=== PATIENT | male | born 1955 ===

== ENCOUNTER 2022-04-24 18:24 | Inpatient (IN) | payer MEDICARE, OTHER ==
[~2022-04-24] VITALS: Ht 167.6 cm; Wt 65.8 kg
[2022-04-24] MEDS ORDERED: IV NORMAL SALINE 1000 ML BAG IV ONE (19:00)
[2022-04-24] MEDS ORDERED: TAMS-3 PO (19:10)
[2022-04-24] MEDS ORDERED: ATOR20TA PO (19:10)
[2022-04-24 19:42] LABS: HEMATOCRIT 39.1 % (36.7-47.1); MEAN CORPUSCULAR HEMOGLOBIN 28.7 uug (23.8-33.4); MEAN CORPUSCULAR VOLUME 85.7 fL (73.0-96.2); PLATELET COUNT (AUTO) 118 K/uL (152-348)
[2022-04-24 19:49] LABS: BILIRUBIN,DIRECT 0.4 mg/dL (0.0-0.2); BILIRUBIN,TOTAL 1.4 mg/dL (0.2-1.0); CREATININE 2.2 mg/dL (0.6-1.3); POTASSIUM 4.7 mmol/L (3.5-5.1); TOTAL PROTEIN, SERUM 6.9 g/dL (6.4-8.2)
[2022-04-24] MEDS ORDERED: IV NS 1000 ML 1,000 ML IV ONE (20:45)
[2022-04-24] MEDS ORDERED: CEFTRIAXONE 1 G in IV DEXTROSE 5% 50 ML IV ONE (20:45)
--- NOTE | 2022-04-24 21:00 | NUR ---
Drained [address] [place]. Irragted [place] with 300ML of NS.
[2022-04-24] MEDS ORDERED: CEFTRIAXONE /D5W 50ML IVPB **ER PYXIS IV ONE (21:44)
--- NOTE | 2022-04-25 00:13 | NUR ---
Thakur draining clear yellow urine.
[2022-04-25 00:45] LABS: *CLARITY,URINE CLOUDY (CLEAR); *COLOR,URINE RED (YELLOW); PH,URINE 6.5 (5.0-8.0)
[2022-04-25 00:47] LABS: *BILIRUBIN,URIN MODERATE (NEGATIVE); *BLOOD, URINE LARGE (NEGATIVE); *KETONES,URINE 15 (NEGATIVE); UGLUCOSE 100 (NEGATIVE)
[2022-04-25 00:48] LABS: NITRITE, URINE POSITIVE (NEGATIVE)
[2022-04-25 00:51] LABS: BACTERIA,URINE FEW /HPF (NONE SEEN); LEUKOCYTE ESTERASE ,URINE TRACE (NEGATIVE); RBC,URINE TNTC /HPF (0-3); SQUAMOUS EPITHELIAL CELL,UR FEW /HPF (NONE SEEN)
--- NOTE | 2022-04-25 01:20 | NUR ---
Called [facility] to page Jaciel Ho NP.
--- NOTE | 2022-04-25 01:33 | NUR ---
call [facility] panel for admission.
--- NOTE | 2022-04-25 01:35 | NUR ---
Dr Thakkar speaking with Edwar Ho PERFUMER test consultant for [facility] for admission. Vic accept patient as Tele admission.
[2022-04-25] MEDS ORDERED: MORPHINE SULFATE 2 MG/1 ML DISP.SYRIN IV PRN (01:45)
[2022-04-25] MEDS ORDERED: IV NS 1000 ML 1,000 ML IV PRN (01:45)
[2022-04-25] MEDS ORDERED: HYDROCODONE/APAP 5-325MG TABLET PO PRN (01:45)
[2022-04-25] MEDS ORDERED: MAGNESIUM HYDROXIDE 30 ML LIQUID UDC PO PRN (01:45)
[2022-04-25] MEDS ORDERED: REMEDY ESSENTIAL ZINC PASTE 113 GM TP PRN (01:45)
[2022-04-25] MEDS ORDERED: TEMAZEPAM 15 MG CAPSULE PO PRN (01:45)
[2022-04-25] MEDS ORDERED: ACETAMINOPHEN 325 MG TABLET PO PRN (01:45)
[2022-04-25] MEDS ORDERED: ONDANSETRON 4 MG/2 ML VIAL IV PRN (01:45)
--- NOTE | 2022-04-25 06:51 | NUR ---
Report given to Raymundo Mendoza.
[2022-04-25] MEDS ORDERED: PANTOPRAZOLE SODIUM 40 MG TABLET.DR PO SCH (07:30)
[2022-04-25] MEDS ORDERED: MORPHINE SULFATE 4 MG/1 ML DISP.SYRIN IV PRN (08:00)
[2022-04-25] MEDS ORDERED: PANTOPRAZOLE SODIUM 40 MG TABLET.DR PO ONE (08:17)
--- NOTE | 2022-04-25 08:21 | NUR ---
report was given to nicu rn. pt was transfered to room #316.
--- NOTE | 2022-04-25 08:45 | NUR ---
Admitted via [facility]. Oriented to surroundings.
[2022-04-25 09:23] VITALS: BP 98/50
--- NOTE | 2022-04-25 11:00 | NUR ---
Dr. Urbano here. Orders received.
[2022-04-25 11:23] LABS: HEMATOCRIT 33.6 % (36.7-47.1); MEAN CORPUSCULAR HEMOGLOBIN 29.2 uug (23.8-33.4); MEAN CORPUSCULAR VOLUME 86.1 fL (73.0-96.2); PLATELET COUNT (AUTO) 99 K/uL (152-348)
[2022-04-25 11:34] LABS: CREATININE 1.2 mg/dL (0.6-1.3); POTASSIUM 3.9 mmol/L (3.5-5.1)
[2022-04-25 11:39] LABS: BILIRUBIN,TOTAL 0.8 mg/dL (0.2-1.0); TOTAL PROTEIN, SERUM 5.4 g/dL (6.4-8.2)
[2022-04-25] MEDS ORDERED: CIPR500T5 PO (12:49)
--- NOTE | 2022-04-25 14:00 | NUR ---
Educated in [place] irrigation. Verbalized understanding. Prepared for discharge.
--- NOTE | 2022-04-25 15:05 | NUR ---
Discharged ambulatory, accompanied by Holly Taylor RN to [facility] in auto. no c/o discomfort.
[2022-04-25] MEDS ORDERED: ATORVASTATIN 20 MG TABLET PO SCH (21:00)
[2022-04-25] MEDS ORDERED: CEFTRIAXONE 1 G in IV DEXTROSE 5% 50 ML IV SCH (22:00)
[2022-04-26] MEDS ORDERED: TAMSULOSIN HCL 0.4 MG CAP.SR.24H PO SCH (09:00)
== END 2022-04-25 15:05 | disposition home or self-care (01) | DRG 872 ==
LOC: ER 18:29 → TRANSITION 04-25 07:19 → TELE3 04-25 08:19
PROVIDERS: ADMIT Internal Medicine; ATTEND Internal Medicine
DX: A41.9 Sepsis, unspecified organism (principal); N39.0 Urinary tract infection, site not specified; N17.9 Acute kidney failure, unspecified; E87.1 Hypo-osmolality and hyponatremia; R65.20 Severe sepsis without septic shock; R31.9 Hematuria, unspecified; D69.6 Thrombocytopenia, unspecified; E88.09 Other disorders of plasma-protein metabolism, not elsewhere classified; R33.9 Retention of urine, unspecified; N40.0 Benign prostatic hyperplasia without lower urinary tract symptoms; Z20.822 Contact with and (suspected) exposure to COVID-19
CPT/HCPCS: 36415; 51702; 76770; 83605; 85025; 85730; 87040; 87086; 93005; A4663; G0378; J0696; J7040